=== PATIENT | male | born 1985 | race Caucasian/White ===

== ENCOUNTER 2016-08-14 18:45 | Emergency (ER) ==
[2016-08-14 19:05] VITALS: BP 153/81
[2016-08-14] MEDS ORDERED: FLUORI-I-STRIP OPH ONE (20:18)
[2016-08-14] MEDS ORDERED: ALCAINE 0.5% OPHTH SOLN BOTH EYES ONE (20:18)
[2016-08-14] MEDS ORDERED: NORCO-5 PO ONE (20:40)
--- NOTE | 2016-08-14 20:45 | PROVIDER DOCUMENTATION ---
HPI-EENT General - General Chief Complaint: Eye Complaint Stated Complaint: RT EYE FOREIGN OBJECT @1600 08/11/16 Time Seen by Provider: 08/14/16 20:17 Source: patient, family Allergies/Adverse Reactions: Patient Allergies Allergy/AdvReac Type Severity Reaction Status Date / Time No Known Allergies Allergy Verified 06/29/15 10:06 Home Medications: Home Medication List Medication Instructions Recorded Confirmed Last Taken Type Methadone [Methadone Liquid] 150 mg PO DAILY 09/26/15 08/14/16 08/14/16 08:00 History Famotidine [Pepcid] 20 mg PO DAILY #20 tablet 08/14/16 Unknown Rx Ibuprofen [Motrin] 800 mg PO Q8H PRN PRN #20 tablet 08/14/16 Unknown Rx Sulfacetamide Na 10% Oph Solu 2 drop RIGHT EYE 4XDAY #1 bottle 08/14/16 Unknown Rx [Sulamyd 10% Oph Solution] - History of Present Illness-EENT General Nature of Presenting Problem: 31 year old WM presents with c/o right eye pain, swelling and erythema for 5 days. pt reports he was sitting on the couch and felt like he had a foreign body in the upper lid, he reports irrigating at home with water and no improvement. pt report this morning he awoke with yellow drainage to the right eye and matting. EENT Location: reports: eye (R) Quality of Pain: reports: aching, dull Severity: reports: mild Onset/Duration: reports: 5 days ago Timing: reports: still present, constant, getting worse Prearrival Treatment: Initiated no prearrival treatment - Eyes Eye Problem Symptoms: reports: eye pain, burning, sensitivity to light, redness , matting, orbital swelling, eyelid swelling, foreign body sensation. denies: decrease vision, blurred vision, double vision, curtain Apparent Injury?: Yes Eye Problem Context: reports: foreign body. denies: sick contact with pink eye , penetration injury, projectile injury Eyes washed at the scene?: Yes Eye Wear at the time of injury:: denies: protective glasses, soft contacts, hard contacts, other protective gear Review of Systems - Adult - REVIEW OF SYSTEMS - ADULT Constitutional: reports: no symptoms reported. denies: chills, fever Eyes: reports: see HPI, discharge, eye pain, redness. denies: dry eyes, decreased vision, blurred vision, double vision Ears, Nose, Mouth & Throat: reports: no symptoms reported. denies: ear discharge, ear pain, nose pain, loose teeth, throat pain, throat swelling Cardiovascular: reports: no symptoms reported. denies: chest pain, palpitations , syncope Respiratory: reports: no symptoms reported. denies: chronic cough, cough, shortness of breath, wheezing Gastrointestinal: reports: no symptoms reported. denies: abdominal pain, diarrhea, nausea, vomiting Genitourinary: reports: no symptoms reported. denies: dysuria, hematuria, urgency Musculoskeletal: reports: no symptoms reported. denies: bone pain, joint pain, joint swelling, neck pain Integumentary: reports: no symptoms reported. denies: hives, itching, rash Neurological: reports: no symptoms reported Psychiatric: reports: no symptoms reported Endocrine: reports: no symptoms reported Hematologic/Lymphatic: reports: no symptoms reported Allergic/Immunologic: reports: no symptoms reported All Other Systems: Reviewed and Negative Past History - Adult - PAST MEDICAL HISTORY-ADULT Review of Records: reports: Old Records Reviewed, Nursing Assessment Review, Medications Reviewed, Social history reviewed & non-contributory. Major Childhood Illnesses: reports: denies history Cardiovascular: reports: denies history Respiratory: reports: denies history Gastrointestinal: reports: denies history Obstetrical/Gynecological: reports: denies history Genitourinary: reports: other (hydrocele, orchitis) Musculoskeletal: reports: denies history Neurological: reports: denies history Endocrine/Immune: reports: denies history Other Conditions: reports: denies history - PRIOR SURGERIES/PROCEDURES Surgical/Procedure History: reports: reviewed, not pertinent - IMMUNIZATION STATUS Childhood Immunizations: See Nurse Assessment - FAMILY HISTORY Family History: reviewed, not pertinent - SOCIAL HISTORY Smoking: cigarettes Provider spent 3-5 mins advising pt. on dangers of tobacco.: Discussed manners to quit use, and f/u contacts for add'l counseling. Substance Use: none/never Alcohol Use Frequency: never Physical Exam- EENT - Physical Exam EENT General Appearance: appears well, alert, no apparent distress Eye Exam: right eye: normal inspection, left eye: conjunctival inflammation, corneal abrasion (at the 9'oclock position), eyelid inflammation, bilateral eye : PERRL, EOMI Ear Exam: bilateral ear: auricle normal, canal normal, TM normal Nasal Exam: normal inspection Throat Exam: normal mouth inspection, pharynx normal Neck: non-tender, full range of motion, supple, normal inspection Respiratory: chest non-tender, lungs clear, normal breath sounds Cardiovascular: normal peripheral pulses, regular rate, rhythm Abdominal Exam: normal bowel sounds, non tender, soft Lymphatic: no adenopathy Back Exam: normal inspection, no CVA tenderness, no vertebral tenderness Extremity: normal range of motion, non-tender, normal gait, normal inspection Integumentary: normal color, normal turgor, warm/dry Neurologic: grossly normal, no motor/sensory deficits Psych/Mental Status: normal mood/affect, normal thought content, normal thought process, oriented x 3 Progress - PLAN OF CARE/RESULTS Progress/Plan/Lab Results: Orders Category Date Time Status Fluorescein Strip [[id number]] Med 08/14/16 20:18 Discontinued 2 each OPH NOW ONE Hydrocodone/APAP 5 mg/325 mg [[id number]] Med 08/14/16 20:40 Discontinued 1 each PO NOW ONE Proparacaine 0.5% Ophth Soln [Alcaine 0.5% Ophth Soln] Med 08/14/16 20:18 Discontinued 1 ml BOTH EYES NOW ONE Vital Signs - 24 hr 08/14/16 19:02 Temperature 97.6 F Pulse Rate 83 Respiratory 18 Rate Blood Pressure 153/81 O2 Sat by Pulse 100 Oximetry Procedures - EYE PROCEDURES Alcaine Drops Administered: Yes Eye(s) Irrigated?: No Selvin Lens Used for Irrigation?: No Eye Exam: Fluorescein Strip, Wood's Lamp Eye Foreign Body Removal: Other (no foreign body visulaized) Remaining Material after Foreign Body Removal: None Antibiotic Oinment/Drops Admininstered: Given as Rx Departure - Departure Time of Disposition Order: 20:40 DIAGNOSIS: Conjunctivitis Qualifiers: Conjunctivitis type: acute Acute conjunctivitis type: bacterial Laterality: right Qualified Code(s): H10.31 - Unspecified acute conjunctivitis, right eye Corneal abrasion Qualifiers: Encounter type: initial encounter Laterality: right Qualified Code(s): S05.01XA - Injury of conjunctiva and corneal abrasion without foreign body, right eye, initial encounter Disposition: HOME 01 Certified Medical Emergency: Emergent Condition: Stable Additional Instructions: Follow up with ophthalmology this week. ED Follow Up Instructions: You have been treated by a care provider in the Emergency Department. These instructions are being provided to you so you can have an understanding of how to care for yourself upon discharge. Upon discharge from the Emergency Department, you are responsible for making arrangements for follow-up care by a physician of your choice. Take all prescribed medications as directed. Return to the Emergency Department immediately for any new or worsening symptoms. You may call the Physician Referral phone number at [phone] to obtain a list of Physicians who are taking new patients. Prescriptions: Ibuprofen [Motrin] 800 mg PO Q8H PRN PRN #20 tablet PRN Reason: inflammation Famotidine [Pepcid] 20 mg PO DAILY #20 tablet Sulfacetamide Na 10% Oph Solu [Sulamyd 10% Oph Solution] 2 drop RIGHT EYE 4XDAY #1 bottle Referrals: None,PCP [Primary Care Provider] - Rehan Retana MD [STAFF PHYSICIAN] - Kareem Tovar MD [NON-STAFF] - Rafita Shields Jr, MD [STAFF PHYSICIAN] - Forms: Return to School/Parent Work Instructions: Bacterial Conjunctivitis, [id number], Corneal Abrasion, Easy-to -Read Attestation - Physician/ MAC Attestation Patient care was provided by Advanced Practice Provider:: Yes Advanced Practice Provider:: Tresa Garcia Advanced Practice Provider documentation review:: The Mid-level provider documentation, treatment plan and medical decision making was reviewed by the physician who agrees with all treatment and medical decision making by the MLP.
== END 2016-08-14 21:08 | disposition home or self-care (01) ==
LOC: ED 18:45
DX: S05.01XA Injury of conjunctiva and corneal abrasion without foreign body, right eye, initial encounter (principal); H10.31 Unspecified acute conjunctivitis, right eye; H57.11 Ocular pain, right eye; F17.210 Nicotine dependence, cigarettes, uncomplicated; Z71.6 Tobacco abuse counseling; Z79.899 Other long term (current) drug therapy